=== PATIENT | female | born 1990 | race Caucasian/White ===

== ENCOUNTER 2023-11-28 16:37 | Emergency (ER) | payer OTHER ==
[~2023-11-28] VITALS: Ht 165.1 cm; Wt 79.5 kg
[2023-11-28 16:48] VITALS: TEMP 98.4
[2023-11-28 18:48] LABS: PH 6.5 (5.0-8.5); URINE APPEARANCE CLEAR (CLEAR/HAZY); URINE BLOOD NEGATIVE (NEGATIVE); URINE COLOR YELLOW (YELLOW); URINE GLUCOSE NEGATIVE (NEGATIVE); URINE KETONE NEGATIVE (NEGATIVE); URINE NITRATE NEGATIVE (NEGATIVE); URINE PROTEIN(semi-quant) NEGATIVE (NEGATIVE); URINE UROBILINOGEN 0.2 E.U/dL (0.2-1.0)
[2023-11-28 18:58] LABS: COLLECTION METHOD CLEAN CATCH
[2023-11-28] MEDS ORDERED: Ketorolac 30 MG/ML VIAL IV ONE (19:00)
[2023-11-28 19:19] LABS: BASO % 0.3 % (0.0-2.0); EOS # 0.1 K/mm3 (0.0-0.7); EOS % 0.6 % (0.0-4.0); GRAN # 8.1 K/mm3 (1.4-6.5); GRAN % 68.5 % (42.2-75.2); HEMATOCRIT 37.8 % (37.0-47.0); LYMPH % 25.2 % (20.0-51.0); MEAN CELL VOLUME 92 fl (80.0-100.0); MEAN CORPUSCULAR HEMOGLOBIN 32 pg (27-31); MEAN CORPUSCULAR HGB CONC 34 g/dl (33.0-37.0); MEAN PLATELET VOLUME 9.7 fl (7.4-10.4); MONO # 0.6 K/mm3 (0.1-0.6); MONO % 4.9 % (1.7-9.3); PLATELET COUNT 245 K/mm3 (130-400)
[2023-11-28 19:39] LABS: BILIRUBIN,TOTAL 0.4 mg/dL (0.2-1.2); CALCIUM 9.3 mg/dL (8.4-10.2); CREATININE, serum 0.74 mg/dL (0.57-1.11); POTASSIUM 3.8 mEq/L (3.5-4.5)
[2023-11-28] MEDS ORDERED: Iohexol 300 - 100 ML VIAL IV ONE (20:08)
[2023-11-28] MEDS ORDERED: NS 100 ML IV ONE (20:09)
[2023-11-28] MEDS ORDERED: Ondansetron 4 MG/2 ML VIAL IV ONE (20:15)
[2023-11-28] MEDS ORDERED: droPERidol 2.5 MG/ML 2 ML VIAL IV ONE (20:30)
[2023-11-28 20:58] VITALS: BP 123/70; PULSE 84
== END 2023-11-28 21:00 | disposition home or self-care (01) ==
LOC: COL.ER 16:37
PROVIDERS: Nurse Practitioner Primary Care
DX: S39.011A Strain of muscle, fascia and tendon of abdomen, initial encounter (principal); F17.290 Nicotine dependence, other tobacco product, uncomplicated; X58.XXXA Exposure to other specified factors, initial encounter
CPT/HCPCS: J1790; J1885; J2405; Q9967